=== PATIENT | male | born 1950 | race Caucasian/White ===

== ENCOUNTER → 2016-05-13 | Outpatient (CLI) | payer OTHER, BC ==
--- NOTE | ~2016-05-13 | EKG ---
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
== END ==
LOC: CV 14:50
DX: Z01.818 Encounter for other preprocedural examination (principal)